=== PATIENT | female | born 1975 | race Caucasian/White ===

== ENCOUNTER → 2018-09-21 11:56 | Outpatient (CLI) | payer OTHER, SELFPAY ==
--- NOTE | 2018-09-21 11:59 | BI_ITS ---
MAMMOGRAPHY - BILATERAL SCREENING REASON FOR EXAM: Female, 43 years old. Routine annual screening examination. PERTINENT HISTORY: Non-contributory. TECHNIQUE: Digital bilateral breast sorin (3D mammographic acquisition) in the CC and MLO projections. 2-D mediolateral oblique (MLO) and craniocaudad (CC) views of both breasts were obtained. CAD: Full Field Digital Mammography with Computer Added Detection was performed. COMPARISON: Comparison is made with prior study dated February 06, 2017 and March 15, 2015. FINDINGS: Breast Composition: The breasts are heterogeneously dense, which may obscure small masses. There are no dominant masses or suspicious calcifications. No other significant abnormalities are identified. There has been no significant change since the prior study. BI/SCREENING MAMM (CAD), BILAT IMPRESSION: Stable bilateral screening mammogram. Yearly follow-up mammogram recommended. (A) ASSESSMENT CATEGORY: BIRADS Category 1: Negative. A letter regarding these results will be sent to the patient by the facility within 30 days. Approximately 10% of breast cancers are not detected by mammography. A normal mammogram should not delay biopsy of a clinically suspicious abnormality. [id number] Electronically Signed: Roge Gutierrez MD at 13:03 EST , Service support ,
== END ==
PROVIDERS: Family Provider Family Medicine; PCP Family Medicine; Referring Provider Obstetrics & Gynecology Gynecology; Visit Provider Obstetrics & Gynecology Gynecology
DX: Z12.31 Encounter for screening mammogram for malignant neoplasm of breast (principal)
CPT/HCPCS: 77063; 77067

== ENCOUNTER → 2019-09-23 09:21 | Outpatient (CLI) | payer OTHER, SELFPAY ==
[2019-09-23 10:06] LABS: Hematocrit 40.9 % (37-47); Hemoglobin 13.2 g/dL (12.0-15.0); Mean Corp Hgb Conc 32.3 g/dL (32-36); Mean Corpuscular Hgb 29.7 pg (27.0-32.0); Mean Corpuscular Volume 91.9 fL (81-99); Mean Platelet Vol. 9.6 fl (6.2-12.0); Platelet Count 376 K/mm3 (150-450); RBC Distribution Width SD 47.3 fl (35.1-43.9); Red Blood Count 4.45 M/mm3 (4.2-5.4); White Blood Count 6.7 K/mm3 (4.4-11.0)
[2019-09-23 10:34] LABS: Anion Gap 4 (5-15); BUN 19 mg/dL (7-18); BUN/Creat Ratio 21.8 RATIO (10-20); Calcium,Total 8.9 mg/dL (8.5-10.1); Chloride 107 mmol/L (98-107); Cholesterol 248 mg/dL (200); Creatinine, Serum 0.87 mg/dL (0.55-1.02); EST Glomerular Filtration Rate 75 mL/min (>60); Est Glom Filt Rate - Afr Amer 91 mL/min (>60); Glucose 93 mg/dL (74-106); High Density Lipoprotein 72 mg/dL; Potassium 3.9 mmol/L (3.5-5.1); Sodium Level 140 mmol/L (136-145); Thyroid Stim Hormone (TSH) 2.02 uIU/mL (0.358-3.74); Triglycerides 92 mg/dL; Very Low Density Lipoprotein 18 mg/dL (5-40)
[2019-09-23 10:46] LABS: Vitamin D,25 Hydroxy 36.9 ng/mL (29.95-100.01)
== END ==
PROVIDERS: PCP Family Medicine; Referring Provider Family Medicine; Visit Provider Family Medicine
DX: Z13.1 Encounter for screening for diabetes mellitus (principal); Z13.0 Encounter for screening for diseases of the blood and blood-forming organs and certain disorders involving the immune mechanism; Z13.220 Encounter for screening for lipoid disorders; Z13.21 Encounter for screening for nutritional disorder
CPT/HCPCS: 36415; 80048; 80061; 82306; 84443; 85027

== ENCOUNTER → 2021-04-26 17:20 | Outpatient (CLI) | payer OTHER, SELFPAY ==
--- NOTE | 2021-04-26 16:20 | BI_ITS ---
MAMMOGRAPHY - BILATERAL SCREENING REASON FOR EXAM: Female, 46 years old. Routine annual screening examination. PERTINENT HISTORY: Non-contributory. TECHNIQUE: Digital bilateral breast meng (3D mammographic acquisition) in the CC and MLO projections. 2-D mediolateral oblique (MLO) and craniocaudad (CC) views of both breasts were obtained. CAD: Full Field Digital Mammography with Computer Added Detection was performed. COMPARISON: Comparison is made with prior study dated 09/21/2018 and 02/06/2017. FINDINGS: Breast Composition: The breasts are heterogeneously dense, which may obscure small masses. There are no dominant masses or suspicious calcifications. No other significant abnormalities are identified. There has been no significant change since the prior study. BI/SCRN MAMM (CAD)W/MENG BILAT IMPRESSION: Stable bilateral screening mammogram. Yearly follow-up mammogram recommended. (A) ASSESSMENT CATEGORY: BIRADS Category 1: Negative. A letter regarding these results will be sent to the patient by the facility within 30 days. Approximately 10% of breast cancers are not detected by mammography. A normal mammogram should not delay biopsy of a clinically suspicious abnormality. [id number] Electronically Signed: Roge Gutierrez MD at 8:53 EDT , Service support ,
== END ==
PROVIDERS: PCP Family Medicine; Referring Provider Obstetrics & Gynecology Gynecology; Visit Provider Obstetrics & Gynecology Gynecology
DX: Z12.31 Encounter for screening mammogram for malignant neoplasm of breast (principal)
CPT/HCPCS: 77063; 77067

== ENCOUNTER 2021-09-12 07:56 | Outpatient (CLI) | payer OTHER, SELFPAY ==
[2021-09-12 11:11] LABS: Anion Gap 8 (5-15); BUN 13 mg/dL (7-18); BUN/Creat Ratio 13.8 RATIO (10-20); Chloride 104 mmol/L (98-107); Cholesterol 239 mg/dL (200); Creatinine, Serum 0.94 mg/dL (0.55-1.02); EST Glomerular Filtration Rate 68 mL/min (>60); Est Glom Filt Rate - Afr Amer 82 mL/min (>60); Glucose 94 mg/dL (74-106); High Density Lipoprotein 76 mg/dL; Potassium 3.8 mmol/L (3.5-5.1); Sodium Level 138 mmol/L (136-145); Triglycerides 75 mg/dL; Very Low Density Lipoprotein 15 mg/dL (5-40)
== END 2021-09-12 23:59 | disposition home or self-care (01) ==
LOC: MTLAB 07:58
PROVIDERS: PCP Family Medicine; Referring Provider Family Medicine; Visit Provider Family Medicine
DX: Z13.1 Encounter for screening for diabetes mellitus (principal); Z13.220 Encounter for screening for lipoid disorders
CPT/HCPCS: 36415; 80048; 80061

== ENCOUNTER 2021-10-01 17:43 | Outpatient (CLI) | payer OTHER, SELFPAY | END 2021-10-01 23:59 | disposition home or self-care (01) | PROVIDERS: PCP Family Medicine; Visit Provider Family Medicine | DX: Z20.822 Contact with and (suspected) exposure to COVID-19 (principal) | CPT/HCPCS: 87635; U0003; U0005 ==

== ENCOUNTER → 2022-05-30 | Outpatient (CLI) | payer OTHER, SELFPAY ==
--- NOTE | 2022-05-30 07:48 | BI_ITS ---
MAMMOGRAPHY - BILATERAL SCREENING REASON FOR EXAM: Female, 47 years old. Routine annual screening examination. PERTINENT HISTORY: Non-contributory. TECHNIQUE: Digital bilateral breast meng (3D mammographic acquisition) in the CC and MLO projections. 2-D mediolateral oblique (MLO) and craniocaudad (CC) views of both breasts were obtained. CAD: Full Field Digital Mammography with Computer Added Detection was performed. COMPARISON: Comparison is made with prior study dated 04/26/2021 and 09/21/2018. FINDINGS: Breast Composition: The breasts are heterogeneously dense, which may obscure small masses. There are no dominant masses or suspicious calcifications. No other significant abnormalities are identified. There has been no significant change since the prior study. BI/SCRN MAMM (CAD)W/MENG BILAT IMPRESSION: Stable bilateral screening mammogram. Yearly follow-up mammogram recommended. (A) ASSESSMENT CATEGORY: BIRADS Category 1: Negative. A letter regarding these results will be sent to the patient by the facility within 30 days. Approximately 10% of breast cancers are not detected by mammography. A normal mammogram should not delay biopsy of a clinically suspicious abnormality. [id number] Electronically Signed: Roge Gutierrez MD at 8:55 EDT ,
== END | disposition home or self-care (01) ==
LOC: OPBI 07:47
PROVIDERS: PCP Family Medicine; Visit Provider Obstetrics & Gynecology Gynecology
DX: Z12.31 Encounter for screening mammogram for malignant neoplasm of breast (principal)
CPT/HCPCS: 77063; 77067

== ENCOUNTER → 2022-11-12 | Outpatient (CLI) | payer OTHER, SELFPAY ==
[2022-11-12 10:38] LABS: Anion Gap 6 (5-15); BUN 12 mg/dL (7-18); BUN/Creat Ratio 13.7 RATIO (10-20); Calcium,Total 9.2 mg/dL (8.5-10.1); Chloride 103 mmol/L (98-107); Cholesterol 256 mg/dL (200); Creatinine, Serum 0.88 mg/dL (0.55-1.02); EST Glomerular Filtration Rate 73 mL/min (>60); Est Glom Filt Rate - Afr Amer 89 mL/min (>60); Glucose 105 mg/dL (74-106); High Density Lipoprotein 70 mg/dL; Potassium 4.1 mmol/L (3.5-5.1); Sodium Level 135 mmol/L (136-145); Triglycerides 159 mg/dL; Very Low Density Lipoprotein 32 mg/dL (5-40)
== END | disposition home or self-care (01) ==
LOC: MTLAB 08:07
PROVIDERS: PCP Family Medicine; Referring Provider Family Medicine; Visit Provider Family Medicine
DX: Z13.1 Encounter for screening for diabetes mellitus (principal); Z13.220 Encounter for screening for lipoid disorders
CPT/HCPCS: 36415; 80048; 80061

== ENCOUNTER → 2022-12-04 | Outpatient (CLI) | payer SELFPAY ==
--- NOTE | 2022-12-04 12:47 | CT_ITS ---
STUDY: CT CHEST WITHOUT CONTRAST REASON FOR EXAM: Female, 47 years old. Calcium scoring. Cardiac over read examination. RADIATION DOSAGE (If Supplied By Facility): CTDIvol = ( 12.19 ) mGy, DLP = ( 219.42 ) mGycm TECHNIQUE: Transaxial imaging was performed without the administration of intravenous contrast material. Individualized dose optimization techniques were used for this CT. COMPARISON: No relevant priors. FINDINGS: CHEST The lungs are normal. There is no demonstrated pleural abnormality. No coronary artery calcification is seen. Normal mediastinum. Normal hilar regions. Normal unenhanced pulmonary arteries. Minimal calcific plaque of the aortic arch. Normal osseous structures. Small hiatal hernia. CT/Limited Chest CT Cardiac Only IMPRESSION: No significant abnormality is seen. Hiatal hernia. Electronically Signed: Roge Gutierrez MD at 13:42 EDT ,
--- NOTE | 2022-12-04 18:00 | CA.SCORE ---
Calcium Scoring Coronary Calcium Scoring: High-resolution Computed Tomographic imaging of the chest was performed on [12/04/22 ], with particular attention paid to the coronary arteries. Images from the examination were analyzed for the presence and extent of coronary artery calcification , using coronary calcium quantification software. The patient tolerated the procedure well and there were no complications. The results of the coronary calcification analysis are provided below. Findings Coronary Artery Left Main (LM): 0 Left Anterior Descending (LAD): 0 Left Circumflex (LCX): 0 Right Coronary Artery (RCA): 0 Total Agatston Score: 0 Percentile Rankin Calcium Scoring Interpretation: Different methods to categorize the overall amount of coronary plaque. Overall amount CAC SIS Visual of coronary plaque P1 Mild -100 <2 1-2 vessels with mild amount of plaque P2 Moderate 101-300 3-4 1-2 vessels with moderate amount, 3 vessels with mild amount of plaque P3 Severe 301-999 5-7 3 vessels with moderate amount, 1 vessel with severe amount of plaque P4 Extensive >1000 >8 2-3 vessels with severe amount of plaque Conclusion: No significant atherosclerotic plaquing noted.
== END | disposition home or self-care (01) ==
LOC: CT 12:46
PROVIDERS: PCP Family Medicine; Referring Provider Family Medicine; Visit Provider Family Medicine
DX: E78.5 Hyperlipidemia, unspecified (principal)
CPT/HCPCS: 75571; 76380

== ENCOUNTER → 2023-06-02 | Outpatient (CLI) | payer OTHER, SELFPAY ==
--- NOTE | 2023-06-02 12:34 | BI_ITS ---
MAMMOGRAPHY - BILATERAL SCREENING REASON FOR EXAM: Female, 48 years old. Routine annual screening examination. PERTINENT HISTORY: Non-contributory. TECHNIQUE: Digital bilateral breast meng (3D mammographic acquisition) in the CC and MLO projections. 2-D mediolateral oblique (MLO) and craniocaudad (CC) views of both breasts were obtained. CAD: Full Field Digital Mammography with Computer Added Detection was performed. COMPARISON: Comparison is made with prior study May 30, 2022 and April 26, 2021. FINDINGS: Breast Composition: The breasts are heterogeneously dense, which may obscure small masses. There are no dominant masses or suspicious calcifications. No other significant abnormalities are identified. There has been no significant change since the prior study. BI/SCRN MAMM (CAD)W/MENG BILAT IMPRESSION: Stable bilateral screening mammogram. Yearly follow-up mammogram recommended. (A) ASSESSMENT CATEGORY: BIRADS Category 1: Negative. A letter regarding these results will be sent to the patient by the facility within 30 days. Approximately 10% of breast cancers are not detected by mammography. A normal mammogram should not delay biopsy of a clinically suspicious abnormality. [id number] Electronically Signed: Roge Gutierrez MD at 14:04 EDT ,
== END | disposition home or self-care (01) ==
LOC: OPBI 12:32
PROVIDERS: PCP Family Medicine; Referring Provider Obstetrics & Gynecology Gynecology; Visit Provider Obstetrics & Gynecology Gynecology
DX: Z12.31 Encounter for screening mammogram for malignant neoplasm of breast (principal)
CPT/HCPCS: 77063; 77067

== ENCOUNTER → 2024-06-17 | Outpatient (CLI) | payer OTHER, SELFPAY ==
--- NOTE | 2024-06-17 07:46 | BI_ITS ---
MAMMOGRAPHY - BILATERAL SCREENING REASON FOR EXAM: Female, 49 years old. Routine annual screening examination. PERTINENT HISTORY: Non-contributory. TECHNIQUE: Digital bilateral breast meng (3D mammographic acquisition) in the CC and MLO projections. 2-D mediolateral oblique (MLO) and craniocaudad (CC) views of both breasts were obtained. CAD: Full Field Digital Mammography with Computer Added Detection was performed. COMPARISON: Comparison is made with prior study dated June 02, 2023 and May 30, 2022. FINDINGS: Breast Composition: The breasts are heterogeneously dense, which may obscure small masses. There are no dominant masses or suspicious calcifications. No other significant abnormalities are identified. There has been no significant change since the prior study. BI/SCRN MAMM (CAD)W/MENG BILAT IMPRESSION: Stable bilateral screening mammogram. Yearly follow-up mammogram recommended. (A) ASSESSMENT CATEGORY: BIRADS Category 1: Negative. A letter regarding these results will be sent to the patient by the facility within 30 days. Approximately 10% of breast cancers are not detected by mammography. A normal mammogram should not delay biopsy of a clinically suspicious abnormality. [id number] Electronically Signed: Roge Gutierrez MD at 8:41 EST ,
== END | disposition home or self-care (01) ==
LOC: OPBI 07:44
PROVIDERS: PCP Family Medicine; Referring Provider Obstetrics & Gynecology Gynecology; Visit Provider Obstetrics & Gynecology Gynecology
DX: Z12.31 Encounter for screening mammogram for malignant neoplasm of breast (principal)
CPT/HCPCS: 77063; 77067

== ENCOUNTER → 2024-11-11 | Outpatient (CLI) | payer OTHER, SELFPAY ==
[2024-11-11 11:11] LABS: Anion Gap 13 (5-15); BUN 17 mg/dL (4-19); BUN/Creat Ratio 18.2 RATIO (10-20); Calcium,Total 9.7 mg/dL (7.6-11.0); Carbon Dioxide 23.5 mmol/L (21.0-32.0); Chloride 103 mmol/L (98-108); Cholesterol 262 mg/dL (<=200); Creatinine, Serum 0.91 mg/dL (0.70-1.20); EST Glomerular Filtration Rate 77 (>60); Glucose 100 mg/dL (70-99); High Density Lipoprotein 79 mg/dL; Low Density Lipoprotein Calc. 164 mg/dL; Potassium 4.2 mmol/L (3.3-5.1); Sodium Level 139 mmol/L (133-145); Triglycerides 92 mg/dL; Very Low Density Lipoprotein 18 mg/dL (5-40); cholesterol:hdl ratio screen 3.31
== END | disposition home or self-care (01) ==
LOC: MTLAB 07:48
PROVIDERS: PCP Family Medicine; Referring Provider Family Medicine; Visit Provider Family Medicine
DX: Z13.220 Encounter for screening for lipoid disorders (principal); Z13.1 Encounter for screening for diabetes mellitus
CPT/HCPCS: 36415; 80048; 80061

== ENCOUNTER → 2025-06-23 | Outpatient (CLI) | payer OTHER, SELFPAY ==
--- NOTE | 2025-06-23 07:19 | BI_ITS ---
EXAM: SCRN MAMM (CAD)W/MENG BILAT DATE: 06/23/2025 CLINICAL HISTORY: F, Age 50 y/o , SCREENING No family history. TECHNIQUE: Procedure Code: [id number] Modality: MG Procedure: SCRN MAMM (CAD)W/MENG BILAT COMPARISON: Prior exam(s) dated June 17, 2024.. FINDINGS: TISSUE DENSITY: The breasts are heterogeneously dense, which may obscure small masses. Bilateral Breast Mammographic Findings: No significant masses, calcifications or other abnormalities are identified. No suspicious masses, areas of developing architectural distortion, or suspicious calcifications. There has been no significant interval change. BI/SCRN MAMM (CAD)W/MENG BILAT IMPRESSION: Stable bilateral screening mammogram. OVERALL FINAL ASSESSMENT BI-RADS 1: NEGATIVE. RECOMMENDATION: Routine annual follow-up in 1 Year Additional Recommendation none A letter with findings and recommendations will be mailed to the patient. Reading Location: [facility]
--- OUTSIDE RECORDS SUMMARY | 2025-06-23 07:35 | XMS RPT_ITS | CCD ---
Author Organization [facility] Care Team Providers Care Supervisor Component Assembler Name Role Phone Justin Morris Primary Care Provider JUSTIN MORRIS Primary Care Unavail able MARCELLO GOMEZ Admitting Unavailab MARCELLO Lobo Referring Unavailab JUSTIN Caraballo Primary Care Unavail able THAI JOINER Attending Unavailable RENARD MCCARTHY, DR CHAKRABORTY Primary Care Physician Dr. Rohit Morris Primary Care Provider Dr. Cheko Velazquez Attending Provider Dr. Rohit Morris Referring Provider Dr. Rohit Morris Other Provider HAYLEY GALINDO MD Attending Unavailable RENARD MCCARTHY, DR CHAKRABROTY Primary Care Unavailable Dr. Justin Morris MD Primary Care Provider Dr. Justin Morris MD Attending Provider [phone] Alexandra MCCARTHY, Dr. Friedman Referring Provider Justin Morris Primary Care Unavailable Hayley Galindo Referring Unavailable Hayley Galindo Attending Unavailable Justin Morris Attending Unavailable Justin Morris Primary Care Unavailable Justin Morris Referring Unavailable Justin Morris Primary Care Unavailable Hayley Galindo Referring Unavailable Hayley Galindo Attending Unavailable DR PALMER GLYNN MD Primary Care Unavailable HAYLEY GALINDO MD Attending Unavailable Medications Current Medications Medication Drug Class(es) Dates Sig (Normalized) Sig (Original) bifidobacterium infantis 4 mg oral capsule (2 sources) Start: 03-11-2014 Align 4 mg oral capsule Dose : 4 mg = 1 cap(s), Oral, Daily, # 28 cap(s), 0 Refill(s) Start Date: 03/11/14 Status: Ordered Medication Dispense Status: Completed Quantity: 28.0 Unit: cap(s) Total Allowed Fills: 1 Fills Dispensed: 0 Calcium (2 sources) Phosphate Binder, Calcium Start: 02-28-2014 take 1 tablet by mouth three times daily Calcium 600+D Dose = 1 tab(s), Oral, TID, 0 Refill(s) Start Date: 02/28/14 Status: Ordered Medication Dispense Status: Completed Total Allowed Fills: 1 Fills Dispensed: 0 Start: 02-28-2014 take 1 tablet by mercedes th three times daily Calcium 600+D Dose = 1 tab(s), Oral, TID, 0 Refill(s) Start Date: 02/28/14 Status: Ordered Estradiol Patch 0.05 mg/24 h ours weekly transdermal film, extended release (1 source) Start: 05-27-2025 Estradiol Patc h 0.05 mg/24 hours weekly transdermal film, extended release 1 patch(es), Topical, qWeek, # 12 patch(es), 4 Refill(s), Pharmacy: [facility], 157, cm, 05/27/25 8:08:00 EDT, Height, kg, 05/27/25 8:08:00 EDT, Dosing Weight Start Date: 05/27/25 Status: Ordered Medication Dispense Status: Completed Quantity: 12.0 Unit: patch(es) Total Allowed Fills: 5 Fills Dispensed: 0 Fish Oils (2 sources) Start: 02-28-2014 Fish Oil 500 m g oral capsule Dose : 500 mg = 1 cap(s), Oral, qDay, 0 Refill(s) Start Date: 02/28/14 Status: Ordered Medication Dispense Status: Completed Total Allowed Fills: 1 Fills Dispensed: 0 Start: 02-28-2014 Fish Oil 500 m g oral capsule Dose : 500 mg = 1 cap(s), Oral, qDay, 0 Refill(s) Start Date: 02/28/14 Status: Ordered Multivitamin preparation (2 sources) Start: 02-28-2014 take 1 tablet by mouth once daily Multivitamin Dose = 1 tab(s), Oral, Daily, 0 Refill(s) Start Date: 02/28/14 Status: Ordered Medication Dispense Status: Completed Total Allowed Fills: 1 Fills Dispensed: 0 Start: 02-28-2014 take 1 tablet by mercedes th once daily Multivitamin Dose = 1 tab(s), Oral, Daily, 0 Refill(s) Start Date: 02/28/14 Status: Ordered progesterone 200 mg oral capsule (1 source) Progesterone Start: 05-27-2025 End: 07-14-2025 take 1 capsule by mouth once daily progesterone 200 mg oral capsule 1 cap(s), Oral, qDay, # 36 cap(s), 3 Refill(s), Pharmacy: [facility], 157, cm, 05/27/25 8:08:00 EDT, Height, kg, 05/27/25 8:08:00 EDT, Dosing Weight Start Date: 05/27/25 Stop Date: 07/14/25 Status: Ordered Medication Dispense Status: Completed Quantity: 36.0 Unit: cap(s) Total Allowed Fills: 4 Fills Dispensed: 0 Vitamin B Complex oral capsule (1 source) Start: 05-09-2023 take 1 capsule by mouth once daily Vitamin B Complex oral capsule Dose = 1 cap(s), Oral, Daily, 0 Refill(s) Start Date: 05/09/23 Status: Ordered Medication Dispense Status: Completed Total Allowed Fills: 1 Fills Dispensed: 0 Zinc-220 (2 sources) Start: 02-28-2014 take 1 dose by mouth three times daily Zinc-220 Dose : 220 mg =, Oral, TID, 0 Refill(s) Start Date: 02/28/14 Status: Ordered Medication Dispense Status: Completed Total Allowed Fills: 1 Fills Dispensed: 0 Start: 02-28-2014 take 1 dose by mouth three times daily Zinc-220 Dose : 220 mg =, Oral, TID, 0 Refill(s) Start Date: 02/28/14 Status: Ordered Problems Problem Classification Problem Date Documented Date Episodic/Chronic Abdominal hernia (2 sources) Hiatal hernia 02-28-2014 Episodic Abdominal pain (2 sources) Pain in female pelvis 03-11-2014 Episodic Comment on above: RIGHT SIDED Immunizations and screening for infectious disease (2 sources) Encounter for screening for human papillomavirus (HPV); Translations: [Encounter for screening for human papillomavirus (HPV)] Onset: 05-27-2025 Episodic Other female genital disorders (2 sources) Polyp of cervix uteri; Translations: [Polyp of cervix uteri] Onset: 05-09-2023 Episodic Other screening for suspected conditions (not mental disorders or infectious disease) (5 sources) Encounter for other screening for malignant neoplasm of breast; Translations: [Encounter for screening for lipoid disorders] Onset: 07-14-2024 Episodic Unclassified (2 sources) Well adult 03-11-2014 Results Test Name Value Interpretation Reference Range Facility Composing Room Supervisor Cytology Reporton 2024 Composing Room Supervisor Cytology Report . Pathology Reports Accession: Collected Date/Time: Received Date/Time: Pathologist: [id number] 05/27/2025 08:37 EDT 05/27/2025 18:00 EDT Composing Room Supervisor Cytology Report SPECIMEN: Specimen Description: Liquid Prep w/ HPV Specimen: Cervical/Endocervical Screening or Diagnostic: Screening RELEVANT HISTORY: LMP: 04/27/25 SPECIMEN ADEQUACY: SATISFACTORY FOR EVALUATION Endocervical/Transform ational zone component absent/insufficient INTERPRETATION/RESULTS : NEGATIVE FOR INTRAEPITHELIAL LESION OR MALIGNANCY HIGH RISK HPV TESTING: HPV Screen Only, KAM Probe Negative HPV Screen Only, KAM Probe Interp Data: Molecular methodology performed on the [employer] System. The APTIMA HPV Screening Assay is a nucleic acid amplification test which detects fourteen high-risk HPV types (16,18,31,33,35,39,45, 51,52,56,58,59,66 and 68). Detection of high-risk HPV (types 16,18 and 45) mRNA is dependent on the number of copies present in the specimen which may be affected by collection methods, patient factors, stage of infection and the presence of interfering substances. This assay is designed to enhance existing methods for the detection of cervical disease and should be used in conjunction with clinical information from other diagnostic and screening tests. This assay is not intended for use as a screening device for women under age 30 with normal cervical history or as a substitute for regular cervical cytology screening. If the APTIMA screening assay is positive, the HPV 16 18/45 genotype assay is performed as a follow-up test and should be interpreted in conjunction with cervical cytology test results, according to current practice guidelines. As of: 05/31/25 15:55 EDT COMMENT: This Pap Test was successfully processed and evaluated with the assistance of the [employer] ThinPrep Test Imaging System. Verified by Pathology report verified by [facility] Screened by: LAF Electronically signed by Nadia Clinton Sign-Out Date: 05/31/2025 15:56 Performing Lab: [facility], [address] [place] [address] Pathology Dept Pathology Reports Accession: Collected Date/Time: Received Date/Time: Pathologist: [id number] 05/27/2025 08:37 EDT 05/27/2025 18:00 EDT Disclaimer The Pap test is a screening test for cervical cancer. As evidenced by published data, it is subject to both inherent false negative and false positive results. Your patient's results should be interpreted in context with pertinent clinical history including gynecological examination. Normal [facility] HPVSCon 05-30-2025 HPV Source Cervix Normal [facility] Comment on above: Order Comment: Order placed by AP_HPV_ORDER rule from [id number] Performed By: #### H PVSC #### [place] [address] HPV Screen Only, KAM Probe Negative Normal Negative [facility] Comment on above: Order Comment: Order placed by AP_HPV_ORDER rule from [id number] Result Comment: Paola cular methodology performed on the [employer] System. The APTIMA HPV Screening Assay is a nucleic acid amplification test which detects fourteen high-risk HPV types (16,18,31,33,35,39,45,51,52,56,58,59,66 and 68). Detection of high-risk HPV (types 16,18 and 45) mRNA is dependent on the number of copies present in the specimen which may be affected by collection methods, patient factors, stage of infection and the presence of interfering substances. This assay is designed to enhance existing methods for the detection of cervical disease and should be used in conjunction with clinical information from other diagnostic and screening tests. This assay is not intended for use as a screening device for women under age 30 with normal cervical history or as a substitute for regular cervical cytology screening. If the APTIMA screening assay is positive, the HPV 16 18/45 genotype assay is performed as a follow-up test and should be interpreted in conjunction with cervical cytology test results, according to current practice guidelines. Performed By: #### H PVS #### [place] [address] Composing Room Supervisor Cytology Reporton 2024 Composing Room Supervisor Cytology Report Event Display: GY Specimen Specimen Description: Liquid Prep w/ HPV Specimen: Cervical/Endocervical Screening or Diagnostic: Screening Nadia Clinton:VERIFY; Authored Date: [facility] Composing Room Supervisor Cytology Report Event Display: GY Cl in Info LMP: 04/27/25 Nadia Clinton:VERIFY; Authored Date: [facility] Composing Room Supervisor Cytology Report Event Display: GY Interp Dx NEGATIVE FOR INTRAEPITHELIAL LESION OR MALIGNANCY Nadia Clinton:VERIFY; Authored Date: [facility] Composing Room Supervisor Cytology Report Event Display: GY Disclaimer The Pap test is a screening test for cervical cancer. As evidenced by published data, it is subject to both inherent false negative and false positive results. Your patient's results should be interpreted in context with pertinent clinical history including gynecological examination. Nadia Clinton:VERIFY; Authored Date: [facility] Composing Room Supervisor Cytology Report Event Display: GY Hi gh Risk HPV Testing HPV Screen Only, KAM Probe Negative HPV Screen Only, KAM Probe Interp Data: Molecular methodology performed on the [employer] System. The APTIMA HPV Screening Assay is a nucleic acid amplification test which detects fourteen high-risk HPV types (16,18,31,33,35,39,45, 51,52,56,58,59,66 and 68). Detection of high-risk HPV (types 16,18 and 45) mRNA is dependent on the number of copies present in the specimen which may be affected by collection methods, patient factors, stage of infection and the presence of interfering substances. This assay is designed to enhance existing methods for the detection of cervical disease and should be used in conjunction with clinical information from other diagnostic and screening tests. This assay is not intended for use as a screening device for women under age 30 with normal cervical history or as a substitute for regular cervical cytology screening. If the APTIMA screening assay is positive, the HPV 16 18/45 genotype assay is performed as a follow-up test and should be interpreted in conjunction with cervical cytology test results, according to current practice guidelines. As of: 05/31/25 15:55 EDT Nadia Clinton:VERIFY; Authored Date: [id number] [facility] Composing Room Supervisor Cytology Report Event Display: GY Comment This Pap Test was successfully processed and evaluated with the assistance of the [employer] MedicaPrep Test Imaging System. Nadia Clinton:VERIFY; Authored Date: [id number] [facility] Composing Room Supervisor Cytology Report Event Display: GY Signature Pathology report verified by [facility] Screened by: LAF Electronically signed by Nadia Clinton Sign-Out Date: 05/31/2025 15:56 Performing Lab: [facility], [address] [place] [address] Pathology Dept Nadia Clinton:VERIFY; Authored Date: [id number] [facility] LABORATORYOrdered By: SYSTEM SYSTEM on 05-27-2025 HPV E6+E7 mRNA KAM+probe Ql (Cvx) Negative 1 (05/27/25 8:37 AM) Normal Negative AH Auto Viro/Sero SS Comment on above: Interpretive Data: Jaime islas methodology performed on the [employer] System. The APTIMA HPV Screening Assay is a nucleic acid amplification test which detects fourteen high-risk HPV types (16,18,31,33,35,39,45,51,52,56,58,59,66 and 68). Detection of high-risk HPV (types 16,18 and 45) mRNA is dependent on the number of copies present in the specimen which may be affected by collection methods, patient factors, stage of infection and the presence of interfering substances. This assay is designed to enhance existing methods for the detection of cervical disease and should be used in conjunction with clinical information from other diagnostic and screening tests. This assay is not intended for use as a screening device for women under age 30 with normal cervical history or as a substitute for regular cervical cytology screening. If the APTIMA screening assay is positive, the HPV 16 18/45 genotype assay is performed as a follow-up test and should be interpreted in conjunction with cervical cytology test results, according to current practice guidelines. HPV Source Cervix *NA* (05/27/25 8:37 AM) Invalid Interpretation Code AH Auto Viro/Sero SS Anion gap in Serum or Plasma Ordered By: Justin Morris on 11-11-2024 Anion gap [Moles/Vol] 13 mmol/L 12-16 [facility] BUN/creatinine ratioOrdered By: Justin Morris on 11-11-2024 Urea nitrogen/Creatinine [Mass ratio] 18.2 mg/mg 05-23 [facility] Basic Metabolic Profile (BMP )on 11-11-2024 BUN/CRE 18.2 RATIO Normal 05-23 [facility] Comment on above: Order Comment: Order Date: 10/19/24 Order Info: [id number] - BMP Order Info: [id number] - LIPID Performed By: #### L 500.2500, L500.4100 #### [facility] [address] [place], [address] Calcium [Mass/Vol] 9.7 mg/dL Normal 7.6-11.0 [facility] Comment on above: Order Comment: Order Date: 10/19/24 Order Info: [id number] - BMP Order Info: [id number] - LIPID Performed By: #### L 500.2500, L500.4100 #### [facility] [address] [place], [address] Chloride [Moles/Vol] 103 mmol/L Normal 98-108 [facility] Comment on above: Order Comment: Order Date: 10/19/24 Order Info: [id number] - BMP Order Info: [id number] - LIPID Performed By: #### L 500.2500, L500.4100 #### [facility] [address] [place], [address] CO2 [Moles/Vol] 23.5 mmol/L Normal 21.0-32.0 [facility] Comment on above: Order Comment: Order Date: 10/19/24 Order Info: [id number]- - [facility] Order Info: [id number] - LIPID Performed By: #### L 500.2500, L500.4100 #### [facility] [address] [place], [address] Creatinine [Mass/Vol] 0.91 mg/dL Normal 0.70-1.20 [facility] Comment on above: Order Comment: Order Date: 10/19/24 Order Info: [id number]- - [facility] Order Info: [id number] - LIPID Performed By: #### L 500.2500, L500.4100 #### [facility] [address] [place], [address] GAP 13 Normal 5-15 [facility] Comment on above: Order Comment: Order Date: 10/19/24 Order Info: [id number]- - [facility] Order Info: [id number] - LIPID Performed By: #### L 500.2500, L500.4100 #### [facility] [address] [place], [address] GFR/1.73 sq M.predicted among non-blacks MDRD (S/P/Bld) [Vol rate/Area] 77 mL/min/{1.73_m2} Normal >60 [facility] Comment on above: Order Comment: Order Date: 10/19/24 Order Info: [id number]- - [facility] Order Info: [id number] - LIPID Result Comment: mL/m in/1.73m2 CKD-EPI Creatinine Equation (2020) Performed By: #### L 500.2500, L500.4100 #### [facility] [address] [place], [address] Glucose [Mass/Vol] 100 mg/dL High 70-99 [facility] Comment on above: Order Comment: Order Date: 10/19/24 Order Info: [id number] - BMP Order Info: [id number] - LIPID Performed By: #### L 500.2500, L500.4100 #### [facility] [address] [place], [address] Potassium [Moles/Vol] 4.2 mmol/L Normal 3.3-5.1 [facility] Comment on above: Order Comment: Order Date: 10/19/24 Order Info: [id number] - [facility] Order Info: [id number] - LIPID Performed By: #### L 500.2500, L500.4100 #### [facility] [address] [place], [address] Sodium [Moles/Vol] 139 mmol/L Normal 133-145 [facility] Comment on above: Order Comment: Order Date: 10/19/24 Order Info: [id number] - [facility] Order Info: [id number] - LIPID Performed By: #### L 500.2500, L500.4100 #### [facility] [address] [place], [address] Urea nitrogen [Mass/Vol] 17 mg/dL Normal 4-19 [facility] Comment on above: Order Comment: Order Date: 10/19/24 Order Info: [id number] - [facility] Order Info: [id number] - LIPID Performed By: #### L 500.2500, L500.4100 #### [facility] [address] [place], [address] Calculated very low density lipoprotein (VLDL) cholesterol measurementOrdered By: Justin Morris on 11-11-2024 VLDL Cholesterol 18 mg/dL 5-40 [facility] Carbon dioxide, total [Moles /volume] in Central venous bloodOrdered By: Justin Morris on 11-11-2024 CO2 [Moles/Vol] 23.5 mmol/L 21.0-32.0 [facility] Chloride assayOrdered By: Brynn Morris on 11-11-2024 Chloride [Moles/Vol] 103 mmol/L 98-108 [facility] GFR/1.73 sq M.predicted nova g non-blacks MDRD (S/P/Bld) [Vol rate/Area]Ordered By: Justin Morris on 11-11-2024 Estimated GFR (MDRD) Non-Af Amer 77 >60 [facility] Comment on above: mL/min/1.73m2 CKD-EP I Creatinine Equation (2020) LDL calc ser/plasOrdered By: Justin Morris on 11-11-2024 LDL Cholesterol, Calculated 164 mg/dL [facility] Comment on above: Drxozljpwx=306-666 m g/dL & Higher Xwcf=628 mg/dL or greater Lipid Profileon 11-11-2024 CHOL:HDL 3.31 Normal [facility] Comment on above: Order Comment: Order Date: 10/19/24 Order Info: [id number] - BMP Order Info: [id number] - LIPID Performed By: #### L 500.2500, L500.4100 #### [facility] [address] [place], [place], [id number] Cholesterol [Mass/Vol] 262 mg/dL High <=200 [facility] Comment on above: Order Comment: Order Date: 10/19/24 Order Info: [id number] - BMP Order Info: [id number] - LIPID Result Comment: Chol esterol level, Desirable <200 mg/dL Borderline high cholesterol 200-239 mg/dL High cholesterol >=240 mg/dL Recommendations of the NCEP Adult Treatment Panel for the following risk-cutoff thresholds for the [place] population. Performed By: #### L 500.2500, L500.4100 #### [facility] [address] [place], [address] Cholesterol in HDL [Mass/Vol] 79 mg/dL Normal [facility] Comment on above: Order Comment: Order Date: 10/19/24 Order Info: [id number] - BMP Order Info: [id number] - LIPID Result Comment: Karina onmeaghan Cholesterol Education Program (NCEP) guidelines: <40 mg/dL: Low HDL-cholesterol (major risk factor for CHD) >= 60 mg/dL: High HDL-cholesterol (negative risk factor for CHD) HDL-cholesterol is affected by a number of factors, e.g. smoking, exercise, hormones, sex and age. Performed By: #### L 500.2500, L500.4100 #### [facility] [address] [place], [address] Cholesterol in LDL [Mass/Vol] 164 mg/dL Normal [facility] Comment on above: Order Comment: Order Date: 10/19/24 Order Info: [id number] - [facility] Order Info: [id number] - LIPID Result Comment: Bord progef=035-253 mg/dL Higher Impo=768 mg/dL or greater Performed By: #### L 500.2500, L500.4100 #### [facility] [address] [place], [address] Cholesterol in VLDL [Mass/Vol] 18 mg/dL Normal 5-40 [facility] Comment on above: Order Comment: Order Date: 10/19/24 Order Info: [id number] - BMP Order Info: [id number] - LIPID Performed By: #### L 500.2500, L500.4100 #### [facility] [address] [place], [address] Triglyceride [Mass/Vol] 92 mg/dL Normal [facility] Comment on above: Order Comment: Order Date: 10/19/24 Order Info: [id number] - BMP Order Info: [id number] - LIPID Result Comment: The drugs N-Acetylcysteine and Metamizole may falsely depress this assay. Normal range: <150 mg/dL Borderline High: 150-199 mg/dL High: 200-499 mg/dL Very High: >500 mg/dL Performed By: #### L 500.2500, L500.4100 #### [facility] [address] [place], [address] Potassium (Unsp spec) [Mass/ Vol]Ordered By: Justin Morris on 11-11-2024 Potassium [Moles/Vol] 4.2 mmol/L 3.3-5.1 [facility] Screening total cholesterol/ high density lipoprotein (HDL) cholesterol ratioOrdered By: Justin Morris on 11-11-2024 Cholesterol.total/Cho lesterol in HDL [Mass ratio] 3.31 {ratio} [facility] Serum creatinine measurement (mass/volume)Ordered By: Justin Morris on 11-11-2024 Creatinine [Mass/Vol] 0.91 mg/dL 0.70-1.20 [facility] Serum glucose measurement (m ass/volume)Ordered By: Justin Morris on 11-11-2024 Glucose [Mass/Vol] 100 mg/dL High 70-99 [facility] Serum or plasma calcium azam urement (mass/volume)Ordered By: Justin Morris on 11-11-2024 Calcium [Mass/Vol] 9.7 mg/dL 7.6-11.0 [facility] Serum or plasma cholesterol in HDL measurement (mass/volume)Ordered By: Justin Morris on 11-11-2024 Cholesterol in HDL [Mass/Vol] 79 mg/dL >40 [facility] Comment on above: National Cholesterol Education Program (NCEP) guidelines:<40 mg/dL: Low HDL-cholesterol (major risk factor for CHD)>= 60 mg/dL: High HDL-cholesterol (negative risk factor for CHD)HDL-cholesterol is affected by a number of factors, e.g. smoking, exercise, hormones, sex and age. Serum or plasma cholesterol measurement (mass/volume)Ordered By: Justin Morris on 11-11-2024 Cholesterol [Mass/Vol] 262 mg/dL High <201 [facility] Comment on above: Cholesterol level, D esirable <200 mg/dLBorderline high cholesterol 200-239 mg/dLHigh cholesterol >=240 mg/dLRecommendations of the NCEP Adult Treatment Panel for the following risk-cutoff thresholds for the [place] population. Serum or plasma urea nitroge n measurement (mass/volume)Ordered By: Justin Morris on 11-11-2024 Urea nitrogen [Mass/Vol] 17 mg/dL 4-19 [facility] Sodium levelOrdered By: Arnold Morris on 11-11-2024 Sodium [Moles/Vol] 139 mmol/L 133-145 [facility] Triglycerides measurementOrd ered By: Justin Morris on 11-11-2024 Triglyceride [Mass/Vol] 92 mg/dL <199 [facility] Comment on above: The drugs N-Acetylcy steine and Metamizole may falsely depress this assay. Normal range: <150 mg/dLBorderline High: 150-199 mg/dLHigh: 200-499 mg/dLVery High: >500 mg/dL SCRN MAMM (CAD)W/ALDO BILATo n 06-17-2024 SCRN MAMM (CAD)W/ALDO BILAT [facility] Imaging Services [address] [place], [place] [address] SCRN MAMM (CAD)W/ALDO BILAT MR#: [id number] Acct: [id number] Name: VINAY NAVARRO KIRBY Rep #: [id number] : 1975 F 49 From: Roge kaye MD PCP: Dr. Justin Morris MD Status: [facility] Study: SCRN MAMM (CAD)W/ALDO BILAT Date of Exam: 06/04 11/25 Exam# [id number] Ordering Dr: Hayley Galindo MD [id number] MAMMOGRAPHY - BILATERAL SCREENING REASON FOR EXAM: Female, 49 years old. Routine annual screening examination. PERTINENT HISTORY: Non-contributory. TECHNIQUE: Digital bilateral breast aldo (3D mammographic acquisition) in the CC and MLO projections. 2-D mediolateral oblique (MLO) and craniocaudad (CC) views of both breasts were obtained. CAD: Full Field Digital Mammography with Computer Added Detection was performed. COMPARISON: Comparison is made with prior study dated June 02, 2023 and May 30, 2022. FINDINGS: Breast Composition: The breasts are heterogeneously dense, which may obscure small masses. There are no dominant masses or suspicious calcifications. No other significant abnormalities are identified. There has been no significant change since the prior study. BI/SCRN MAMM (CAD)W/ALDO BILAT IMPRESSION: Stable bilateral screening mammogram. Yearly follow-up mammogram recommended. (A) ASSESSMENT CATEGORY: BIRADS Category 1: Negative. A letter regarding these results will be sent to the patient by the facility within 30 days. Approximately 10% of breast cancers are not detected by mammography. A normal mammogram should not delay biopsy of a clinically suspicious abnormality. [id number] Electronically Signed: Roge Gutierrez MD at 8:41 EST Reading Location ID and State: [facility] / [place] , Service support , CC: Dr. Hayley Galindo MD; Dr. Justin Morris MD Assistant General Manager: Signed Normal [facility] Final Surgical Pathology Rep [facility] 05-13-2023 Final Surgical Pathology Report . Pathology Reports Accession: Collected Date/Time: Received Date/Time: Pathologist: [id number] 05/09/2023 09:27 EDT 05/12/2023 10:56 EDT CODY SUÁREZ MD Final Surgical Pathology Report DIAGNOSIS: CERVICAL POLYP: - BENIGN ENDOCERVICAL POLYP WITH INFLAMMATION CLINICAL INFORMATION: Endocervical polyp Procedure: Endocervical polypectomy Preoperative diagnosis: endocervical polyp Postoperative diagnosis: pending SPECIMEN: A CERVICAL POLYP GROSS DESCRIPTION: All parts labelled with patient name and [id number] Received in formalin labeled undesignated is 1 man-pink tissue fragment measuring 0.9 x 0.3 greatest dimension. TS-1 Hui Martin, Grossing Car Pilot/ Dr. Emery Shanks, Pathologist Dictated by Hui Martin MICROSCOPIC DESCRIPTION: The microscopic examination is performed, except in the case of Gross Only. Electronically Signed by Pathology Report verified by [facility] CODY SUÁREZ Sign out Date: 05/13/2023 12:56 Performing Lab: [facility], [address] [place] [address] States Pathology Dept Disclaimer If ancillary studies were utilized, the following Laboratory Developed Test (LDT) disclaimer will apply: Under CLIA requirements, [facility] Pathology Laboratory is qualified to perform high complexity testing. For all ancillary stains, positive and negative controls stain appropriately. Performance characteristics of immunohistochemical and chromogenic in-situ hybridization tests have been determined by [facility] Pathology Laboratory. These tests are used for clinical purposes, They should not be regarded as investigational or for research. Normal [facility] ([place]) Basophil percentageOrdered B y: Dr. Morris on 11-12-2022 Chloride [Moles/Vol] 103 mmol/L 98-107 [facility] Cholesterol [Mass/Vol] 256 mg/dL <200 [facility] Comment on above: <200 mg/dL Desirable 200-240 mg/dL Borderline >240 mg/dL High Risk Glucose [Mass/Vol] 105 mg/dL 74-106 [facility] Comment on above: Fasting Glucose resu lt from 100 to 125 mg/dL suggests IMPAIRED HOMEOSTASIS per A.D.A. criteria. Potassium [Moles/Vol] 4.1 mmol/L 3.5-5.1 [facility] Sodium [Moles/Vol] 135 mmol/L 136-145 [facility] Triglyceride [Mass/Vol] 159 mg/dL <199 [facility] Comment on above: The drugs N-Acetylcy steine and Metamizole may falsely depress this assay.Serum Triglycerides Reference Interval Normal <150 mg/dL Borderline high 150 - 199 mg/dL High 200 - 499 mg/dL Very High > or = 500 mg/dL Laboratory - Chemistry and C hemistry - challengeOrdered By: Dr. Morris on 11-12-2022 CO2 [Moles/Vol] 26.0 mmol/L 21.0-32.0 [facility] Urea nitrogen/Creatinine [Mass ratio] 13.7 mg/mg 10-20 [facility] No Panel InformationOrdered By: Dr. Morris on 11-12-2022 Estimated GFR (MDRD) Amer 89 mL/min >60 [facility] Comment on above: GFR Calc Estimated GFR (MDRD) Non-Af Amer 73 mL/min >60 [facility] Comment on above: Non- GFR Calc Serum or plasma calcium azam urement (mass/volume)Ordered By: Dr. Morris on 11-12-2022 Calcium [Mass/Vol] 9.2 mg/dL 8.5-10.1 [facility] Serum or plasma cholesterol in HDL measurement (mass/volume)Ordered By: Dr. Morris on 11-12-2022 Cholesterol in HDL [Mass/Vol] 70 mg/dL >40 [facility] Comment on above: The drugs N-Acetylcy steine and Metamizole may falsely depress this assay. Reference Range HDL <40 mg/dL Low HDL Cholesterol HDL >or= 60 mg/dL High HDL Cholesterol Serum or plasma cholesterol in VLDL measurement (mass/volume)Ordered By: Dr. Morris on 11-12-2022 Cholesterol in VLDL [Mass/Vol] 32 mg/dL 5-40 [facility] Serum or plasma creatinine m easurement (mass/volume)Ordered By: Dr. Morris on 11-12-2022 Creatinine [Mass/Vol] 0.88 mg/dL 0.55-1.02 [facility] Comment on above: The validity of the calculated GFR & GFRAA in patients over 70 years has not been determined. Clinical correlation is essential. Serum or plasma low density lipoprotein (LDL) cholesterol measurement (mass/volume)Ordered By: Dr. Morris on 11-12-2022 Cholesterol in LDL [Mass/Vol] 154 mg/dL 0-130 [facility] Serum or plasma urea nitroge n measurement (mass/volume)Ordered By: Dr. Morris on 11-12-2022 Urea nitrogen [Mass/Vol] 12 mg/dL 7-18 [facility] Thin prep Papanicolaou smear with manual screeningOrdered By: Dr. Morris on 11-12-2022 Thin prep Papanicolaou smear with manual screening 6 5-15 [facility] LABORATORYOrdered By: SYSTEM SYSTEM on 01-04-2022 E2 [Mass/Vol] 36.76 pg/mL Invalid Interpretation Code AH ADM SS Follitropin Qn 79.0 m[IU]/mL Invalid Interpretation Code ADM SS Lutropin Qn 46.7 m[IU]/mL Invalid Interpretation Code AH ADM SS Testosterone [Mass/Vol] 15.60 ng/dL Invalid Interpretation Code ADM SS LABORATORYOrdered By: Yordan Ibrahim on 01-04-2022 TSH Qn 3.26 m[IU]/L Invalid Interpretation Code 0.36 - 3.74 mcIU/mL AO ADM SS Encounters Encounter Date Encounter Type Care Provider Facility Start: 06-23-2025 ambulatory Justin Choi lity:[facility] Start: 06-07-2025 Encounter for gynecological examination (general) (routine) without abnormal findings Hayley Galindo [facility] Start: 05-27-2025 End: 05-31-[address] PALMER GLYNN MD Facility:[facility] Start: 05-27-2025 End: 05-31-2025 Encounter for gynecological examination (general) (routine) without abnormal findings HAYLEY GALINDO MD Facility:[facility] Start: 05-27-2025 End: 05-31-2025 Outreach Lab HAYLEY GALINDO MD [facility] Start: 11-11-2024 End: 11-11-[address] Justin Morris MD Work Phone: [facility] Work Phone: Start: 11-11-2024 End: 11-11-[address] Justin Morris MD -Laboratory, Monitor Work Phone: Start: 11-11-2024 End: 11-11-2024 ambulatory Justin Morris Facility:[facility] Start: 06-17-2024 End: 06-17-2024 ambulatory Justin Morris Facility:[facility] Start: 05-09-2023 End: 05-14-2023 ambulatory HAYLEY GALINDO MD Facility: Start: 12-04-2022 Non-patient / Non-visit Dr. Brynn Morris Work Phone: [facility] Start: 12-04-2022 End: 12-04-[address] Rohit Morris Work Phone: [facility] Work Phone: Start: 12-04-2022 End: 12-04-[address] Rohit Morris Work Phone: [facility]-Cat Scan, [facility] Start: 11-12-2022 End: 11-12-2022 ambulatory [facility] Work Phone: Start: 11-12-2022 End: 11-12-2022 Patient encounter procedure [facility]-Laboratory, Monitor Start: 05-30-2022 End: 05-30-2022 ambulatory [facility] Work Phone: Start: 05-30-2022 End: 05-30-2022 Patient encounter procedure [facility]-Outpatient Breast Imaging Start: 01-04-2022 End: 01-04-2022 Patient encounter procedure HAYLEY GALINDO MD [facility] Start: 11-15-2020 End: 11-15-2020 Patient encounter procedure JUSTIN JAIMES [facility] Start: 11-15-2020 End: 11-15-2020 Patient encounter procedure Marcellodiana Vaca Crouch Work Phone: [facility] Vaccine [facility] Start: 10-24-2020 End: 10-24-2020 Patient encounter procedure JUSTIN JAIMES [facility] Start: 10-24-2020 End: 10-24-2020 Patient encounter procedure Thai Joiner [facility] Vaccine [facility] Procedures Date Procedure Procedure Detail Performing Clinician Start: 12-04-2022 CT angiography of co ronary arteries Dr. Rohit Morris Work Phone: Start: 05-30-2022 Screening mammography Start: 08-04-2000 Cyst of ovary (disorder) HAYLEY GALINDO MD Comment on above: right Colonoscopy HAYLEY GALINDO MD Dermoid cyst (morpho logic abnormality) HAYLEY GALINDO MD Jaw injury (disorder) HAYLEY GALINDO MD Salpingo-oophorectomy HAYLEY GALINDO MD Comment on above: Right Tonsillectomy and adenoidectomy HAYLEY GALINDO MD Plan of Treatment Date Care Activity Detail Author Start: 03-11-2027 Tetanus vaccination Tetanus: Every 10yrs [facility] Start: 11-15-2020 End: 11-15-2020 Immunization 11/15/2020 Immunization Primary Care Marcello Gomez MD [facility] [address] [place], [place] [id number] [facility] Start: 11-14-2020 COVID-19 Vaccine (2 - Pfizer 2-dose series) COVID-19 Vaccine (2 - Pfizer 2-dose series) [facility] Start: 04-04-2020 Influenza vaccination given Sequential Influenza Vaccine (#1) [facility] Start: 1993 Hepatitis C antibody, confirmatory test Hepatitis C Screening [facility] Start: 1990 HIV screening HIV Screening [facility] Start: 1987 Adolescent depression screening assessment Depression Screening (PHQ9) [facility] Start: 1978 History and physical examination, annual for health maintenance Wellness Visit [facility] Start: 1975 Screening for malignant neoplasm of cervix Pap Smear [facility] Start: 1975 Screening mammography Mammogram [facility] Immunizations Immunization Date Immunization Notes Care Provider Fa cility 11-15-2020 Pfizer SARS-CoV-2 Vaccination Pfizer Opg Pcp Ont Covid Vc [facility] 10-24-2020 Pfizer SARS-CoV-2 Vaccination Htai Jc [facility] 05-25-2019 influenza, injectabl e, quadrivalent, preservative free Dr. Justin Morris MD Work Phone: [facility] 05-25-2019 influenza, seasonal, injectable [facility] 05-25-2014 influenza, injectabl e, quadrivalent, preservative free Dr. Justin Morris MD Work Phone: [facility] 05-25-2014 influenza, seasonal, injectable [facility] Payers Date Payer Category Payer Private Health Insurance [id number] 2025 Unknown [id number] 2024 Self-pay [id number] 2023 Unknown [id number] 1975 Unknown [id number] 1975 Unknown [id number] Unknown [facility] PACKAGE PLAN [id number] Unknown [id number] Unknown [id number] Unknown [id number] Unknown [id number] Social History Date Type Detail Facility Tobacco smoking stat [facility] Unknown if ever smoked [facility] Sex Assigned At Not on file [facility] Exposure to SARS-CoV -2 (event) Not sure [facility] Start: 03-19-2021 Tobacco smoking status Never s moked tobacco (finding) [facility] Start: 1975 Sex Assigned At Female [facility] Start: 05-03-2013 [facility] Start: 09-24-2018 End: 11-17-2024 Sex Female (finding) [facility] Sexual Orientation [facility] Evaluation + Plan note 05-27-2025 Radiology Note Date & Type Note Facility 05-27-2025 Evaluation + Plan note Future Scheduled TestsMA Mammo Screening Bilateral w/ Aldo 05/27/25 [facility] Clinical Note 05-27-2025 Note Date & Type Note Facility 05-27-2025 Note Event Display: GY In terp Adequacy SATISFACTORY FOR EVALUATION Endocervical/Transformational zone component absent/insufficient Rocío Clintona Mary:VERIFY; Authored Date: [id number] [facility] Evaluation + Plan note Radiology Note Date & Type Note Facility Evaluation + Plan note Future Appointments Appointment Date:01/11/2022 09:00:00 AM Scheduled Provider:HAYLEY GALINDO MD Location:[facility] Appointment Type: OV Future Scheduled TestsMA Mammo Diagnostic Bilateral w/Aldo 04/18/21MA Mammo Screening Bilateral w/ Aldo 04/18/21MA Mammo Screening Bilateral w/ Aldo 03/20/21 [facility] Evaluation note Note Date & Type Note Facility Evaluation note No assessment information availa [facility] Work Phone: Hospital course Narrative Note Date & Type Note Facility Hospital course Narrative No data available for this section [facility] Hospital Discharge instructions Note Date & Type Note Facility Hospital Discharge instructions No data available for this section [facility] Progress note Note Date & Type Note Facility Progress note No data available for this section [facility] Reason for referral (narrative) Note Date & Type Note Facility Reason for referral (narrative) No reason for referral information available [facility] Work Phone: Advance Directives No Advanced Directives Records FoundDocuments on File Type Date 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 Advance Directives and Livin g Will 10/24/2020 2:56 PM Summary Purpose Family History No Family History Records FoundNo Family History Records Found No data available for this section No Family History Records FoundNo Family History Records Found Chief Complaint and Reason for Visit Chief Complaint SCREENING Chief Complaint EORDER Chief Complaint EORDER HYPERLIPIDEMIA Amb Documentation HYPERLIPIDEMIA Chief Complaint Admit Date E-ORDER November 11, 2024 7:4 6am Additional Source Comments INFORMATION SOURCE (unrecogn ized section and content) DATE [facility] DATE CREATED AUTHOR AUTHOR'S ORGANIZ ATION 05/15/2023 [facility] ([place]) DATE CREATED AUTHOR AUTHOR'S ORGANIZ ATION 06/09/2025 [facility] DATE CREATED AUTHOR AUTHOR'S ORGANIZ ATION 06/12/2025 [facility] Care Team (unrecognized sect ion and content) Team Status: Active Member Role Status Dates Dr. Rohit Morris MD Family Provider Active Dr. Rohit Morris MD Primary Care Provider Activ e Team Status: Inactive Member Role Status Dates Dr. Rohit Morris MD Primary Care Provider, Attending Provider, Referring Provider Active Team Status: Active Member Role Status Dates Dr. Rohit Morris MD Primary Care Provider Activ e Dr. Cheko Velazquez MD Attending Provider Active Team Status: Active Member Role Status Dates Dr. Rohit Morris MD Primary Care Provider, Referring Provider, Other Provider Active Dr. Cheko Velazquez MD Attending Provider Active Team Status: Active Member Role Status Dates Dr. Justin Morris MD Family Provider Active Dr. Justin Morris MD Primary Care Provider Acti ve Team Status: Inactive Member Role Status Dates Dr. Justin Morris MD Primary Care Provider Acti ve Start: November 11, 2024 End: November 11, 2024 Dr. Justin Morris MD Attending Provider Active Start: November 11, 2024 End: November 11, 2024 Dr. Justin Morris MD Referring Provider Active Start: November 11, 2024 End: November 11, 2024 Goals (unrecognized section and content) Goals may be documented in a n alternate section FOR RECORDS PERTAINING TO PATIENTS WHO ARE OR HAVE BEEN ENROLLED IN A CHEMICAL DEPENDENCY/SUBSTANCEABUSE PROGRAM, SOME INFORMATION MAY BE OMITTED. This clinical summary was aggregated from multiple sources. Caution should be exercised in using it in the provision of clinical care. This summary normalizes information from multiple sources, and as a consequence, information in this document may materially change the coding, format and clinical context of patient data. In addition, data may be omitted in some cases. CLINICAL DECISIONS SHOULD BE BASED ON THE PRIMARY CLINICAL RECORDS. [facility]. provides no warranty or guarantee of the accuracy or completeness of information in this document.
== END | disposition home or self-care (01) ==
LOC: OPBI 07:18
PROVIDERS: PCP Family Medicine; Referring Provider Obstetrics & Gynecology Gynecology; Visit Provider Obstetrics & Gynecology Gynecology
DX: Z12.31 Encounter for screening mammogram for malignant neoplasm of breast (principal)
CPT/HCPCS: 77063; 77067